=== PATIENT | male | born 1955 | race Caucasian/White ===

== ENCOUNTER 2020-05-24 10:48 | Day surgery (SDC) | payer OTHER ==
[2020-05-23 11:13] VITALS: BMI 32.5
[~2020-05-24 10:48] MED LIST: Dexamethasone 20 MG/5 ML VIAL ONE; Glycopyrrolate 0.2 MG/ML 5 ML SYRINGE ONE; Lidocaine 1% PF 5 ML VIAL ONE; Ondansetron PF 4 MG/2 ML Vial ONE; PHENYLEPHRINE-NS 100 MCG/ML 10 ML SYRINGE ONE; PROPOFOL 200 MG/20 ML VIAL ONE; Rocuronium Bromide 10 MG/ML (10ML VIAL) ONE; Succinylcholine 200 MG/10 ml SYRINGE FS ONE; ePHEDrine 50 MG/ML VIAL ONE
[2020-05-24] MEDS ORDERED: Fentanyl 100 MCG/2 ML VIAL ONE (11:13)
[2020-05-24] MEDS ORDERED: Bacitracin Zinc Ointment 30 gm TUBE ONE (11:13)
[2020-05-24] MEDS ORDERED: Lidocaine 1% w/Epinephrine 1:100K 20 ML VIAL ONE (11:13)
[2020-05-24] MEDS ORDERED: Dexmedetomidine 200 MCG/2 ML VIAL ONE (11:14)
--- NOTE | 2020-05-24 13:33 | OP ---
DATE OF PROCEDURE: 05/24/2020 PREOPERATIVE DIAGNOSIS: Left parotid mass. POSTOPERATIVE DIAGNOSIS: Left parotid mass. PROCEDURE PERFORMED: Left superficial parotidectomy with facial nerve monitor. ESTIMATED BLOOD LOSS: 10 mL. COMPLICATIONS: None. ANESTHESIA: GETA. DESCRIPTION OF PROCEDURE: The patient was taken to the operating room, placed supine on the table. General endotracheal anesthesia was obtained by the Anesthesia Staff. Tube was secured in the right lower lip and a shoulder roll was placed. A facial nerve monitor was set up into the orbicularis sandy and orbicularis oculi muscles and was turned on and remained on throughout the procedure. Following this, the patient was prepped and draped in standard surgical fashion. 9 mL of 1% lidocaine with 1:100,000 epinephrine was injected into the area for the anticipated modified Nicolás incision. Following this, a 15 blade was used to incise the skin, subcutaneous tissue, and platysmal layer extending anterior to the ear and extending around the earlobe with a 1-cm margin and then extending onto the neck in a curvilinear fashion. Following this, the skin flaps were elevated over the parotid gland with a fat up and fat down technique. The mass was immediately encountered. The facial nerve was then dissected by the parotid gland from the sternocleidomastoid muscle inferiorly. The facial nerve was then identified deep to the tympanomastoid suture line. The inferior division of the facial nerve was identified and was dissected and the mass was noted to be just inferior to the marginal mandibular branch of the facial nerve. Following this, the mass along with a cuff of parotid tissue was removed from the body using dissection and the wound was irrigated and hemostasis was obtained. The skin was then closed using 3-0 and 4-0 Monocryl stitches and a running Prolene stitch was used to reapproximate the skin. The drain was placed and was working at the end of the procedure and the patient tolerated the procedure well. The facial nerve monitor was then turned off. Job ID: [id number]
--- NOTE | 2020-05-25 07:10 | EKG ---
Test Reason : PREOP Blood Pressure : / mmHG Vent. Rate : 062 BPM Atrial Rate : 062 BPM P-R Int : 184 ms QRS Dur : 102 ms QT Int : 404 ms P-R-T Axes : 071 067 066 degrees QTc Int : 410 ms Normal sinus rhythm Early repolarization Normal ECG No previous ECGs available Confirmed by DR. Noa BOSE ([id number]) on 05/25/2020 7:10:04 AM Referred By: CINDI Confirmed By:DR. Noa BOSE
== END 2020-05-24 15:05 | disposition home or self-care (01) ==
LOC: SDC 10:48
PROVIDERS: ATTEND Otolaryngology Plastic Surgery within the Head & Neck
PROC: 0CB90ZZ Excision of Left Parotid Gland, Open Approach (ICD-10-PCS; principal; 2020-05-24)
PROC: 00BM0ZZ Excision of Facial Nerve, Open Approach (ICD-10-PCS; principal; 2020-05-24)
DX: D37.030 Neoplasm of uncertain behavior of the parotid salivary glands (principal); J45.909 Unspecified asthma, uncomplicated; E78.5 Hyperlipidemia, unspecified; J44.9 Chronic obstructive pulmonary disease, unspecified; N40.0 Benign prostatic hyperplasia without lower urinary tract symptoms; E66.9 Obesity, unspecified; Z68.32 Body mass index [BMI] 32.0-32.9, adult; Z79.82 Long term (current) use of aspirin; Z79.899 Other long term (current) drug therapy; Z87.891 Personal history of nicotine dependence
CPT/HCPCS: 88307; 93005; 93010; J1100; J2405; J2704; J3010; J3490